=== PATIENT | male | born 1995 | race Hispanic/Latino ===

== ENCOUNTER 2017-11-21 03:43 | Emergency (ER) | payer OTHER, SELFPAY ==
[2017-11-21] MEDS ORDERED: OXYMETAZOLINE HCL SPRAY 15 ML BOTTLE ONE (04:55)
[2017-11-21] MEDS ORDERED: DIPHENHYDRAMINE HCL 25 MG CAPSULE ONE (04:56)
== END 2017-11-21 06:08 | disposition home or self-care (01) ==
LOC: EDH 03:43
DX: R04.0 Epistaxis (principal); J01.20 Acute ethmoidal sinusitis, unspecified; Z88.8 Allergy status to other drugs, medicaments and biological substances; Z72.0 Tobacco use
CPT/HCPCS: 99283; Q0163

== ENCOUNTER 2018-01-19 21:53 | Emergency (ER) | payer OTHER, SELFPAY | END 2018-01-19 22:48 | disposition home or self-care (01) | LOC: EDH 21:53 | DX: K64.4 Residual hemorrhoidal skin tags (principal); Z88.8 Allergy status to other drugs, medicaments and biological substances; Z98.890 Other specified postprocedural states; Z72.0 Tobacco use | CPT/HCPCS: 99281 ==

== ENCOUNTER → 2019-12-21 | Outpatient (CLI) | payer OTHER ==
[~2019-12-21] MED LIST: IOHEXOL-350 50ML VIAL IV ONE
== END | disposition home or self-care (01) ==
LOC: RAH 13:54
PROVIDERS: ATTEND Family Medicine
DX: J34.1 Cyst and mucocele of nose and nasal sinus (principal); J35.1 Hypertrophy of tonsils; R59.9 Enlarged lymph nodes, unspecified; R51 Headache
CPT/HCPCS: 70488; Q9967

== ENCOUNTER 2022-11-29 08:45 | Emergency (ER) | payer OTHER ==
[~2022-11-29] VITALS: Ht 180.3 cm; Wt 104.3 kg
[2022-11-29] MEDS: 0.9%NACL 1000ML 1,000 ML IV SCH ×2 (09:15→10:59)
[2022-11-29] MEDS ORDERED: ONDANSETRON 4MG INJ IVP ONE (09:30)
[2022-11-29] MEDS ORDERED: DiphenhydrAMINE HCL 50 MG/ML VIAL IV ONE (09:30)
[2022-11-29] MEDS ORDERED: KETOROLAC 30MG VIAL (30MG/ML) IVP ONE (09:30)
[2022-11-29] MEDS ORDERED: ASPI1TAB7 PO (11:24)
[2022-11-29 11:47] VITALS: BP 130/77
== END 2022-11-29 11:58 | disposition home or self-care (01) ==
LOC: EDH 08:45
DX: R51.9 Headache, unspecified (principal); I10 Essential (primary) hypertension
CPT/HCPCS: 99284; 96374; 96375; 96361; J1200; J7030 ×2; J2405; J1885